=== PATIENT | female | born 1960 | race Caucasian/White ===

== ENCOUNTER 2017-02-15 14:33 | Day surgery (SDC) | payer OTHER ==
[~2017-02-15] VITALS: Ht 162.6 cm; Wt 69.7 kg
[2017-02-15] MEDS ORDERED: METFORMIN (16:09)
[2017-02-15] MEDS ORDERED: PRAVASTATIN (16:09)
[2017-02-15 16:12] VITALS: Ht 162.6 cm; Wt 69.7 kg
[2017-02-15 16:55] VITALS: BP 126/75; PULSE 64; RESP 18
[2017-02-15] MEDS ORDERED: MIDAZOLAM 1 MG/ML 2 ML INJ ONE ×2 (17:32)
[2017-02-15] MEDS ORDERED: FENTAnyl 50 MCG/ML VIAL ONE (17:32)
[2017-02-15 17:50] VITALS: BP 138/87; PULSE 66; RESP 18
--- NOTE | 2017-02-15 18:54 | GILP ---
DATE OF PROCEDURE: 02/15/2017 NAME OF PROCEDURE: Colonoscopy. SURGEON: Lencho Cornejo MD PREOPERATIVE DIAGNOSIS: Screening colonoscopy. POSTOPERATIVE DIAGNOSES 1. Colonoscopy all the way to the cecum. 2. Poor prep, making the exam suboptimal. 3. Internal hemorrhoids. INDICATION FOR THE PROCEDURE: Ms. Rosie Julio is a 56-year-old female patient who was scheduled f or screening colonoscopy. The procedure and possible complications were well explained to the patient, she understood and cons ented to the procedure. DESCRIPTION OF PROCEDURE: Under the influence of fentanyl and Versed, the colonoscope was carefully introduced in the rectum and under direct vision, it was advanced all the way to the cecum. FINDINGS: The patient had poor prep making the exam very suboptimal. The patient was noted to have internal hemorrhoids. She tolerated the procedure very well and there was no complication from the procedure. At the end of the procedure, she was awake with stable vital signs and she was discharged home to the care of h er family. IMPRESSION: 1. Colonoscopy all the way to the cecum. 2. Poor prep, making the exam very suboptimal. 3. Internal hemorrhoids. PLAN: Because of the poor prep and suboptimal nature of the examination, would recommend repeat col onoscopy with better preparation in 1 year. Dictated By: LENCHO CORNEJO MD GD/NTS Conf#: [id number] DID#: [id number] CC: LENCHO CORNEJO MD;*EndCC*
== END 2017-02-15 18:24 | disposition home or self-care (01) ==
LOC: GIL 14:33
PROVIDERS: ATTEND Internal Medicine Gastroenterology
DX: Z12.11 Encounter for screening for malignant neoplasm of colon (principal); K64.8 Other hemorrhoids; E11.9 Type 2 diabetes mellitus without complications
CPT/HCPCS: 45378; J2250; J3010